=== PATIENT | male | born 1980 | race Caucasian/White ===

== ENCOUNTER 2018-05-31 10:20 | Day surgery (SDC) | payer OTHER, SELFPAY ==
[2018-05-31] VITALS (7 sets, daily range): BP systolic 103–125; BP diastolic 49–89; PULSE 81–89; RESP 16–18; TEMP 36.7–36.8; O2SAT 96–99; BMI 32.1
[2018-05-31] MEDS: Bupiv/Epi 0.5% Mpf 30 ML Vial (11:07)
[2018-05-31] MEDS: Cefazolin 2 GM in 0.9% Normal Saline 100 ML IV (11:45)
--- NOTE | 2018-05-31 14:03 | PCM.DC.HER ---
Discharge Diet: Light diet - advance as tolerated Discharge Activity: Return to Normal Activity, May Not Drive - for 2-3 days or while taking narcotic pain meds., May Shower - with the bandage in place 1-2 days after surgery. May shower in (days): 1 Lifting Restrictions: 20 pounds for 4 weeks. Additional Activity Instructions:: Climbing stairs is fine, walking is encouraged. Sitting in bed may be uncomfortable. Sitting up using your lateral muscles (sitting up sideways) is usually more comfortable. Do not drive, work heavy equipment of [employer] for 24 hours. Pain medications may cause nausea, you should typically eat light foods as you take your pain medications. Pain medications may also cause constipation. If you have difficulty with this, discuss with your doctor. Call your doctor if your incision/area has: Continuous Slow Oozing, Sudden Increased Bleeding, Increased Pain/ Swelling, Increased Redness, Foul Smelling Discharge Call your doctor if you observe: Fever of 101 or Higher Suture Line Care: Avoid Pulling/Pushing, Avoid Pinching/Bending Change Dressing in (Days):: 2 - Leave steri-strips for 1 week. May protect with a guaze bandaid. Cleanse incision/area with: Keep Dressing Clean & Dry Allergies/Adverse Reactions: Allergies Sulfa (Sulfonamide Antibiotics) Allergy (Unknown, Verified 05/25/18 10:05) Rash Medications to take at Discharge tramadol 50 mg tablet 50 mg PO BID PRN tab 05/21/18 Oxycodone HCl/Acetaminophen [Percocet 5/325] 1 - 2 tablet PO Q4H PRN PRN 7 Days #40 tablet 05/31/18 The following prescriptions were given: Oxycodone HCl/Acetaminophen [Percocet 5/325] 1 - 2 tablet PO Q4H PRN PRN 7 Days #40 tablet PRN Reason: Pain Primary Care Physician: Thomas Wild DO [Primary Care Provider] - Test Results: Please Follow Up With: Tc Thorpe MD When: Please call to schedule 2 week follow up appointment. [phone]
[2018-05-31] MEDS: Acetaminophen 325 MG Tablet PO (14:29)
[2018-05-31] MEDS: oxyCODONE 5 MG Tablet PO (14:29)
--- NOTE | 2018-05-31 14:33 | OP.PCM_ITS ---
Problem List (1) Umbilical hernia without obstruction or gangrene Status: Acute Report of Operation Date of Procedure: 05/31/18 Pre-Operative Diagnosis: Umbilical hernia Post-Operative Diagnosis: Umbilical hernia Surgery/Procedure Performed:: Umbilical hernia repair with mesh Specimen's removed: None Description of Procedure: The patient was brought back to the operating room and general anesthesia. The abdomen was prepped and draped in usual sterile fashion. Next a semilunar incision was made inferior to the umbilicus. Skin flaps were created and the hernia sac was isolated. Dissection was made down to the fascia. Next the contents of the hernia were reduced and the hernia sac was reduced into the abdomen. A preperitoneal plane was developed circumferentially. A medium ventral ex mesh was placed into this pocket but it was too large and was folding in several places. This was removed and a small ventralex mesh was placed into the abdomen. The ventralex mesh was tacked to the fascia with several 0 PDS sutures. The umbilical skin was then tacked to the umbilicus using a 3-0 Vicryl suture. The cavity was irrigated and suctioned dry. The incision was then anesthetized with Marcaine. The incision was then closed with interrupted 3-0 Vicryl sutures and a running 4-0 Monocryl suture. Steri- Strips and a bandage were applied. Patient tolerated procedure well and was brought to PACU in stable condition. Grafts/Implants Used: Small ventralex mesh - Admit VTE Documentation VTE Mechan Device Prophylaxis: SCD's
== END 2018-05-31 15:13 | disposition home or self-care (01) ==
LOC: SDC 10:21 → AC 10:22
PROVIDERS: Family Provider Family Medicine; PCP Family Medicine; Visit Provider Surgery
PROC: (CPT 49585; principal; 2018-05-31 11:45)
DX: K42.9 Umbilical hernia without obstruction or gangrene (principal)
CPT/HCPCS: 00830; 49585; J7120; C1781; J2405

== ENCOUNTER 2019-03-13 11:00 | Outpatient (RCR) | payer OTHER, SELFPAY ==
--- NOTE | 2019-03-04 08:22 | HP.PTEVAL ---
Patient's Visit Information GINA SOLORZANO is a 38 year old M referred to Physical Therapy by GINNA Dupont with a diagnosis of ALIF L4-S1 and post instrumentation L4-L5 on 02/15/2019. Date of Evaluation: 03/04/19 Physical Therapist: Miladys Parker DPT - Visit Plan Frequency: 2-3x /Week Duration: 4 Weeks Plan: ALIF L4S1 and post instrumentation L4-L5 02/15/19- Neutral spine and pain relief - Subjective Findings: February 15- L4-L5- L5-S1 Fusion with cages by Dr. Hu Charles. Feels like has lost a lot of muscle tone in his legs but its feeling better. Still challenged putting on shoes and socks. This is his 4th procedure. Started in [address] cleaned him out- pattern for the next few years 13-15 months later had another L4-L5 ([facility] [place]) then a year later had a clean out at L5-S1 ([facility] [place]). Then saw Dr. Charles who recommended a fusion- quality of life was most important to have to make the decision. Stay at [place] for 2 days then went. Can live on a single story- lives with someone who can help as needed. Work: sales- car/desk activity. Is back to work currently mostly from home. MD says 8 months before he can lift things out of his trunk. Limitations- no lifting over 10 lbs, no bending, twisting, lifting. Is walking 5 miles a day outside. Currently 1-2/10 mostly muscle pains. Left side of the spine and the belly is tender from the incision. Worst: 7/10 Agg: nothing Eases: ice, getting off his feet. No radiating pain- did not have radiating pain. No more N/T in the last 4-5 days. Sleep: disturbed- up every 2 hours- side sleeper. Saw last - he was happy with where he was- sees him again in 8 weeks. PMHx: none Meds: Trazadone, Certrolene, Oxycodone (PRN)- does the best with extra strength Tylenol. - Objective Posture: poor- FH, RS, increased kyphosis. Observation: not comfortable in a position for longer than a few minutes- from hip to hip. ROM: Lumber: not tested secondary to restrictions- Hip: flexion to 90 degrees then reports pressure on his abdomen. Extn/IR/ER/Add/Abd: WNL. Sensation/Reflex: WNL. Incisions: healing well no s/s of infection. Strength:Ankle: 5/5, Knee: 5/5, Hip: 4/5 throughout Core: poor. Special Test: slump: positive, Dural Signs: positive bilaterally, SLR: positive. Flex: HS: severe, Gastroc: moderate - Goals Goal 1:: Patient will be I with HEP and progression Goal Time Frame: 4-6 Weeks Goal 2:: Patient will maintain proper posture t/o tx session to demo increased core s/s Goal Time Frame: 4-6 Weeks Goal 3:: Patient will report sleeping through the night for 1 week with no pain Goal Time Frame: 4-6 Weeks - Rehabilitation Potential Physical Therapy Diagnosis: Patient presents with hypomobility- he has decreased ROM, strength and muscular endurance s/p ALIF L4-S1 leading to abnormal posture and decreased participation in ADL's. Rehabilitation Potential: Fair - Anticipated Interventions Patient/Client Instruction: Educate patient on: Benefits of Fitness Program Therapeutic Exercise to Include: Strength training, Endurance training, Coordination, Body mechanics, Postural training, Flexibilty training, Gait and locomotor training, Passive ROM, Active ROM, Dynamic Lumbar Stabilization, Scapular Strength/Stabilization For the Purpose of:: To improve muscle performance and motor function TENS: Yes Cryotherapy (ice pack, ice massage): Yes Thermo therapy (hot pack): Yes Ultrasound (thermal/non thermal): No Thank you for the opportunity to evaluate your patient. For Medicare and Medicare HMO plans, please review the plan of care and approve it. It will need to be FAXED BACK to us at [phone] for Medicare purposes. For Medicare only, by signing this I certify the plan of care. Please let me know if there are questions or concerns regarding this plan of care. Physician Signature: Date:
--- NOTE | 2019-07-30 14:36 | HP.PT.NRP ---
HP - Discharge Summary (1) - Patient Information GINA SOLORZANO was seen in my office for initial evaluation on 03/04/19. The following Plan of Care was established for this patient: Initial Frequency: 2-3x /Week Initial Duration: 4 Weeks - Anticipated Interventions Patient/Client Instruction: Educate patient on: Benefits of Fitness Program Therapeutic Exercise to Include: Strength training, Endurance training, Coordination, Body mechanics, Postural training, Flexibilty training, Gait and locomotor training, Passive ROM, Active ROM, Dynamic Lumbar Stabilization, Scapular Strength/Stabilization For the Purpose of:: To improve muscle performance and motor function TENS: Yes Cryotherapy (ice pack, ice massage): Yes Thermo therapy (hot pack): Yes Ultrasound (thermal/non thermal): No This patient was last seen in our office . Pertinent comments regarding their Physical therapy will appear below: Patient has not attended PT in over 6 weeks and is appropriate for d/c and to return to MD for further evaluation as needed. At this point I will be discontinuing this patient from physical therapy. I would be happy to see this patient again in the future if found appropriate by the physician. Thank you! PRASANTH LazaroT
== END 2019-03-13 19:00 | disposition home or self-care (01) ==
LOC: PT 11:00
PROVIDERS: Family Provider Family Medicine; PCP Family Medicine; Referring Provider Nurse Practitioner; Visit Provider Nurse Practitioner
DX: Z98.1 Arthrodesis status (principal)
CPT/HCPCS: 97110; 97161